=== PATIENT | female | born 1970 | race Hispanic/Latino ===

== ENCOUNTER 2018-09-02 18:38 | Emergency (ER) | payer OTHER ==
[2018-09-02] MEDS ORDERED: IBUPROFEN 600 MG TABLET ONE (19:03)
[2018-09-02 19:08] LABS: RAPID GROUP A STREP NEGATIVE (NEGATIVE)
== END 2018-09-02 19:56 | disposition home or self-care (01) ==
LOC: EDH 18:38
DX: R50.9 Fever, unspecified (principal); R05 Cough; Z98.890 Other specified postprocedural states
CPT/HCPCS: 87804; 87880